=== PATIENT | female | born 1975 | race Hispanic/Latino ===

== ENCOUNTER 2018-11-04 04:04 | Inpatient (IN) | payer SELFPAY ==
[2018-11-03 12:20] LABS: Absolute Lymphocytes (CBC) 1.6 K/uL (0.7-4.9); Absolute Monocytes 0.6 K/uL (0.1-1.3); Basophils % 0.3 % (0-1.3); Eosinophils % 0.7 % (0-4.4); Hematocrit 39.2 % (36.0-45.0); MPV 9.6 fL (7.6-11.3); Monocytes % 6.2 % (3.3-12.3)
[2018-11-03 12:25] LABS: Protime INR 0.89
--- NOTE | 2018-11-03 15:28 | PREOPHP ---
Date of Admission: 11/04/2018 A 43-year-old, 4, para 3, diabetic during her , now at 38 weeks and 4 days. Baby watson s been breech in the last several visits, again breech today and large also. Fingertip dilated. The baby no where near the pelvis. Family history is noncontributory. No medical past history of any s ignificance. No allergies. Does have false teeth. Does not smoke. Physical Examination: HEENT: Clear. Pupils equal, round, and reactive to light and accommodation. Conjunctivae well perf used. No oral, lingual, or buccal lesions. Chest and Lungs: Clear. Heart: Without murmurs, thrills, heaves, or rubs. Breasts: Not examined today. Abdomen: More than term size thought to be a fairly large baby. Extremities: Clear without edema, cyanosis, or clubbing. Pelvic: Exam is as stated. Fingertip with the presenting part very high in the pelvis. Cannot even be palpated, but ultrasound in the office demonstrates breech and has on several occasions. We will schedule the patient for on Friday. That morning, we will check her again. If the baby is rotated, we will induce instead of going with , but otherwise, we will proceed wi th section. Full discussion with patient and . JOESPH/MATHEW Voice ID: [id number]
[2018-11-04 05:50] VITALS: BMI 32.0
[2018-11-04] MEDS ORDERED: Ringers Lactate 2,000 ML IV ONE ×2 (06:12→09:52)
[2018-11-04] MEDS ORDERED: METOCLOPRAMIDE 10 MG/2mL INJ ONE (06:36)
[2018-11-04] MEDS ORDERED: NA CIT/CITRIC AC 30 ML ORAL UDC ONE (06:36)
[2018-11-04] MEDS ORDERED: CEFAZOLIN/SWI 2gm 2 GM/20 ML SYR ONE (06:36)
[2018-11-04] MEDS ORDERED: FAMOTIDINE 20 MG/2 ML VIAL IV ONE (06:36)
[2018-11-04 06:44] LABS: Urine Appearance CLEAR; Urine Bilirubin NEGATIVE (NEG); Urine Blood NEGATIVE (NEG); Urine Color YELLOW; Urine Glucose NEGATIVE (NEG); Urine Protein NEGATIVE (NEG); Urine Specific Gravity <=1.005 (1.005-1.030); Urine Urobilinogen 0.2 mg/dL (0.2-1.0); Urine pH 6.5 (5.0-7.0)
--- NOTE | 2018-11-04 06:53 | PN ---
A 43-year-old, 4, para 3, at approximately 39 weeks, gestational diabetic. Baby has been david ech with the last 3 visits. It apparently has converted to a head first position, but still in a peter y unstable lie, still very high in the pelvis, basically floating. The cervix is posterior and 1 cm. The patient, her , and I have decided today, we are going to proceed with as given the high-risk situation of her being a very elderly with diabetes and an unfavorable cervix a nd the could go another week or so, I think expeditious delivery at this point would be mor e reasonable. We will continue to proceed with this morning. JOESPH/MATHEW Voice ID: [id number] Report ID: [id number]
[2018-11-04] MEDS ORDERED: OXYTOCIN 10 UNIT/ML ML IV ONE ×2 (07:00→08:05)
[2018-11-04] MEDS ORDERED: MORPHINE SULFATE/PF 1 MG/ML (10 ML AMP) ONE (07:00)
[2018-11-04] MEDS ORDERED: EPHEDRINE SULF 50 MG/ML VIAL ONE (07:00)
[2018-11-04] MEDS ORDERED: NS 0.9% VIAL 10 ML ONE ×3 (07:07→07:52)
[2018-11-04] MEDS ORDERED: CARBOPROST TROME 250 MCG/ML IM ONE (07:12)
[2018-11-04] MEDS ORDERED: METHYLERGONOVINE 0.2MG/ML AMP IM ONE (07:12)
[2018-11-04] MEDS ORDERED: Ringers Lactate 1,000 ML IV PRN (07:14)
[2018-11-04 07:46] LABS: Urine Microscopic Reflex NO UMIC
[2018-11-04] MEDS ORDERED: MIDAZOLAM HCL 2 MG/2 ML INJ ONE (07:47)
[2018-11-04] MEDS ORDERED: Phenylephrine HCl 10 MG/ML 1 ML VIAL ONE (07:50)
[2018-11-04] MEDS ORDERED: CEFAZOLIN 1GM (PREMIX IV) 50 ML IV SCH (08:00)
[2018-11-04] MEDS ORDERED: CEFAZOLIN/SWI 2gm 2 GM/20 ML SYR IV SCH (08:00)
[2018-11-04] MEDS ORDERED: Ringers Lactate 1,000 ML IV SCH (08:00)
[2018-11-04] MEDS ORDERED: Oxycodone HCl/Acetaminophen 1 TAB TAB PO PRN ×2 (08:12)
[2018-11-04] MEDS ORDERED: BISACODYL 10 MG RECTAL SUPP RECT PRN (08:12)
[2018-11-04] MEDS ORDERED: ONDANSETRON 4 MG (ODT) TAB PO PRN (08:12)
[2018-11-04] MEDS ORDERED: DIPHENHYDRAMINE 25 MG TAB/CAP PO PRN (08:12)
[2018-11-04] MEDS ORDERED: ONDANSETRON 4 MG/2 ML VIAL IV PRN (08:12)
[2018-11-04] MEDS ORDERED: ACETAMINOPHEN 500 MG TAB PO PRN ×2 (08:12)
[2018-11-04] MEDS ORDERED: KETOROLAC 30 MG/ML INJ IM PRN (08:12)
[2018-11-04] MEDS ORDERED: KETOROLAC 30 MG/ML INJ IV PRN (08:12)
[2018-11-04] MEDS ORDERED: IBUPROFEN 200 MG TAB PO PRN (08:12)
--- NOTE | 2018-11-04 08:17 | RAD REPORT ---
EXAM DESCRIPTION: RAD - Abdomen 1 View ([facility]) - 11/04/2018 4:38 am CLINICAL HISTORY: . Assess presentation FINDINGS: Cephalic presentation. Spine maternal right
[2018-11-04] MEDS: METHYLERGONOVINE 0.2 MG TAB PO PRN ×3 (08:35→18:45)
[2018-11-04] MEDS ORDERED: D5LR 1,000 ML with OXYTOCIN 20 UNIT IV SCH ×2 (09:00)
[2018-11-04] MEDS ORDERED: OXYTOCIN/LR 20 UNIT/1,000 ML BAG IV SCH (09:00)
[2018-11-04] MEDS ORDERED: CEFAZOLIN/SWI 1gm 1 GM/10 ML SYR IVP ONE (16:07)
--- NOTE | 2018-11-04 18:50 | OP ---
Surgeon: Antione Wu MD Indications: A 43-year-old, 4, para 3, gestational diabetes. The baby has been in a very un stable lie, was breech in the office for 3 weeks in a row. This morning, baby is head first, but sti ll very high in the pelvis with an unfavorable cervix. The patient has been advised. They wish to p roceed with section. Full preoperative counseling concerning procedures and possible compli cations, including infection, blood loss, anesthetic complications; injury to bladder, bowel, ureter; postoperative complications, clots in legs, and pneumonia. The patient knows fully well this does n ot constitute all the possible problems that could occur during or following surgery. Anesthesia: Spinal block anesthesia, Dr. Lynch and group. Braille Teacher Surgeon: Dr. Morrison. Description Of Procedure: After prepping and draping, time-out was performed. Pfannenstiel incision was then created. The incision was carried to the fascia. The fascia was incised and incision mackenzie ied transversely bilaterally. Anterior fascial plane was developed with both blunt and sharp dissect ion. The underlying rectus muscles were already significantly . The peritoneal defect was observed and entered. Low transverse uterine incision created. A 6-pound 9-ounce male infant was de livered without difficulties. Apgars 9 and 10. Cord blood specimen was obtained. Placenta was brittany olegario manually. Uterus cleared of clot and blood and exteriorized. [id number] hypertonus noted, 0.2 mg of Methergine IM, as well as IV drip Pitocin. Estimated blood loss during procedure 1100 cc. Cervical os dilated with ring clamp. Uterus closed with a running locked stitch of 1 chromic. No further bleeding seen. Gutters clear of clot and blood. Uterus was replaced in the peritoneal cavit y. Suture line again inspected, no further bleeding. The muscles were then reapproximated with 0 Vi cryl 3 sutures. The fascia was closed with 1 Vicryl running from either angle to the midline. Subcu taneous tissue was closed with 2-0 plain. Absorbable aleah placed and then metal aleah. The pat ient had been given 2 g of Ancef prior to the procedure. Tolerated all procedures well, transferred back to her room in good condition. Final Diagnoses: Intrauterine gestation, 38 weeks 6 days, possibly further. Gestational diabetes, u nstable lie with an unfavorable cervix. Maternal request for section. JOESPH/MATHEW Voice ID: [id number] Report ID: [id number]
[2018-11-05] MEDS: METHYLERGONOVINE 0.2 MG TAB PO PRN (06:15)
[2018-11-05] MEDS ORDERED: MAGNESIUM HYDROXIDE 8% 30 ML PO PRN (08:12)
--- NOTE | 2018-11-05 12:27 | PN ---
Billy Cardenas postoperatively has done quite well. H and H with minimal change. We will disco ntinue Hernandez and IV. She is encouraged to ambulate. We will start p.o. intake. If that goes well, dismiss her tomorrow. No reported problems this morning. Doing well. JOESPH/MATHEW Voice ID: [id number] Report ID: [id number]
[2018-11-06 08:31] VITALS: BP 108/61; TEMP 97.9
[2018-11-06] MEDS ORDERED: Tdap (Diph,Pertuss(Acell),Tet Vac) 0.5 ML SYR IMVAC ONE (08:37)
--- NOTE | 2018-11-07 06:11 | DS ---
Date of Discharge: 11/06/2018 Hospital Course: A 43-year-old, 4, para 3, gestational diabetic, very unstable. Patient cho se section. Full preoperative counseling concerning procedure and possible complications, i ncluding infection, blood loss, anesthetic complications, injury to bladder, bowel, ureter, postopera tive complications, clots in legs, and pneumonia. The patient underwent primary section low transverse cervical, with delivery of an estimated 6-pound 9-ounce male infant, Apgars 9 and 10. Mi ld uterine . Estimated blood loss 1100 cc, but I think it was actually less than that as h ematocrit barely changed pre and postop. Lochia has been normal. No post epidural problems. The carlos vivas will be dismissed to return to my office next week for staple removal. To report any temperatu re elevation of 100 degrees or greater, severe pain, heavy bleeding, or any other type of abnormaliti es. She is Rh positive, immune to Rubella. She has had her Tdap immunization. Dismissed with trama dol for analgesia. Final Diagnoses: Term intrauterine 38 weeks 6 days, gestational diabetes, elderly . Primary section. Mild uterine . JOESPH/MATHEW Voice ID: [id number] Report ID: [id number]
== END 2018-11-06 11:10 | disposition home or self-care (01) | DRG 788 ==
LOC: 2ND-WC 04:04
PROVIDERS: ADMIT Specialist; ATTEND Specialist
PROC: 10D00Z1 Extraction of Products of Conception, Low, Open Approach (ICD-10-PCS; principal; 2018-11-04 07:30)
DX: O24.429 Gestational diabetes mellitus in childbirth, unspecified control (principal); O32.0XX0 Maternal care for unstable lie, not applicable or unspecified; O62.4 Hypertonic, incoordinate, and prolonged uterine contractions; Z3A.38 38 weeks gestation of pregnancy; Z37.0 Single live birth; O34.40 Maternal care for other abnormalities of cervix, unspecified trimester
CPT/HCPCS: 36415; 74018; 81003; 85014; 85025; 85610; 85730; 86850; 86900; 86901; 88307; 90715; J0690; J2210; J2250; J2370; J2590; J2765